=== PATIENT | male | born 1955 | race Caucasian/White ===

== ENCOUNTER 2025-02-10 09:00 | Emergency (ER) | payer OTHER ==
[~2025-02-10] VITALS: Ht 170.2 cm; Wt 70.3 kg
[2025-02-10] MEDS: AMOX TR/POT CLAV 875 MG/125 MG TABLET PO ONE (11:53)
[2025-02-10] MEDS: HYDROCODONE/ACETAMINOPHEN 5-325 MG TABLET PO ONE (11:53)
[2025-02-10 13:01] VITALS: BP 131/77; PULSE 64; RESP 18; TEMP 97.5; O2SAT 96
== END 2025-02-10 13:10 | disposition home or self-care (01) ==
LOC: EMS 09:07
DX: K04.7 Periapical abscess without sinus (principal); I10 Essential (primary) hypertension; Z02.89 Encounter for other administrative examinations
CPT/HCPCS: 99283